=== PATIENT | male | born 1970 | race Caucasian/White ===

== ENCOUNTER 2019-01-02 06:01 | Day surgery (SDC) | payer BC ==
[2019-01-01 15:49] VITALS: BMI 28.6
[~2019-01-02] VITALS: Ht 170.2 cm; Wt 82.2 kg
[2019-01-02] VITALS (40 sets, daily range): BP systolic 102–166; BP diastolic 56–95; PULSE 72–102; RESP 9–37; Ht 170.2 cm; Wt 82.2 kg
[2019-01-02] MEDS ORDERED: BUPIVACAINE 0.25% (MPF) 30 ML INJ ONE (07:42)
[2019-01-02] MEDS ORDERED: BUPIVACAINE 0.5% (SDV) 30 ML INJ ONE ×2 (07:42→16:29)
[2019-01-02] MEDS ORDERED: LIDOCAINE 1% (MPF) 30 ML INJ ONE (07:42)
[2019-01-02] MEDS ORDERED: MIDAZOLAM 1 MG/ML 2 ML INJ ONE (08:07)
[2019-01-02] MEDS ORDERED: LIDOCAINE 2% (SDV) 5 ML INJ ONE (08:07)
[2019-01-02] MEDS ORDERED: FENTAnyl 50 MCG/ML VIAL ONE (08:07)
[2019-01-02] MEDS ORDERED: PROPOFOL 20 ML ONE (08:07)
[2019-01-02] MEDS ORDERED: OXYCODONE/ACETAMINOPHEN (5/325) TAB PO PRN (08:30)
[2019-01-02] MEDS ORDERED: CEFAZOLIN 1 GM INJ ONE (08:30)
[2019-01-02] MEDS ORDERED: FENTAnyl 50 MCG/ML VIAL IV PRN (08:30)
[2019-01-02] MEDS ORDERED: ONDANSETRON 4 MG INJ IV PRN (08:30)
[2019-01-02] MEDS ORDERED: DIPHENHYDRAMINE 50 MG INJ IV PRN (08:30)
[2019-01-02] MEDS ORDERED: HYDROmorphONE 1 MG/5 ML IV SYRINGE IV PRN ×3 (08:30)
[2019-01-02] MEDS ORDERED: PROCHLORPERAZINE 10 MG INJ IV PRN (08:30)
[2019-01-02] MEDS ORDERED: MEPERIDINE 25 MG INJ IV PRN (08:30)
[2019-01-02] MEDS ORDERED: ONDANSETRON 4 MG INJ ONE (08:32)
[2019-01-02] MEDS ORDERED: DEXAMETHASONE 4 MG/ML 5 ML INJ ONE (08:32)
[2019-01-02] MEDS ORDERED: HYDROmorphONE 2 MG/ML SYG ONE (09:43)
[2019-01-02] MEDS ORDERED: FLUMAZENIL 0.5 MG INJ IV ONE (12:30)
[2019-01-02] MEDS ORDERED: NALOXONE (0.4 MG/ML) INJ ONE (12:37)
[2019-01-02] MEDS ORDERED: NALOXONE (0.4 MG/ML) INJ IV ONE (13:00)
[2019-01-02] MEDS ORDERED: BACITRACIN/POLYMYXIN 28.35 GM OINT TOP ONE (16:30)
== END 2019-01-02 16:59 | disposition home or self-care (01) ==
LOC: SDS 06:01
PROVIDERS: ATTEND Orthopaedic Surgery
DX: M19.142 Post-traumatic osteoarthritis, left hand (principal)
CPT/HCPCS: 26860; 73130; 88304; 88311; C1713; J0690; J1100; J1170; J2250; J2310; J2405; J3010; Z7512; Z7610